=== PATIENT | female | born 1965 | race Caucasian/White ===

== ENCOUNTER → 2017-01-05 | Outpatient (CLI) | payer BC, SELFPAY ==
--- NOTE | 2017-01-06 17:56 | MRI ---
EXAM DESCRIPTION: Noncontrast MRI of the left shoulder CLINICAL HISTORY: Shoulder pain COMPARISON: None TECHNIQUE: Multiplanar, multi sequence MRI images of the left shoulder were obtained without intra-articular contrast. FINDINGS: The rotator cuff is intact. Rotator cuff musculature demonstrates normal muscle bulk and signal characteristics. Long head of the biceps is well situated within the intertubercular groove. Biceps labral anchor is intact. Labrum is intact. No significant degenerative changes of the acromioclavicular joint. No fluid seen within the subdeltoid/subacromial bursa. Type 2 acromion is noted. Glenohumeral joint cartilage is intact. No large joint effusion or loose body. Marrow signal is otherwise unremarkable without fracture or subluxation. IMPRESSION: Unremarkable MRI of the left shoulder Electronically signed by: Matthias Pan MD 01/06/2017 5:55 PM CDT
== END | disposition home or self-care (01) ==
LOC: MRI 09:13
PROVIDERS: ATTEND Family Medicine
DX: M25.512 Pain in left shoulder (principal)

== ENCOUNTER → 2017-03-06 | Outpatient (CLI) | payer BC | LOC: GMAL 16:55 | PROVIDERS: ATTEND Family Medicine | DX: Z79.899 Other long term (current) drug therapy (principal) ==

== ENCOUNTER → 2019-05-20 | Outpatient (CLI) | payer BC | LOC: GMAL 14:55 | PROVIDERS: ATTEND Family Medicine | DX: Z51.81 Encounter for therapeutic drug level monitoring (principal); Z79.899 Other long term (current) drug therapy ==

== ENCOUNTER → 2020-07-14 | Outpatient (CLI) | payer BC | LOC: GMAL 14:40 | PROVIDERS: ATTEND Family Medicine | DX: D61.3 Idiopathic aplastic anemia (principal); Z79.899 Other long term (current) drug therapy; E03.9 Hypothyroidism, unspecified; E55.9 Vitamin D deficiency, unspecified; F33.1 Major depressive disorder, recurrent, moderate; F41.1 Generalized anxiety disorder; E78.01 Familial hypercholesterolemia; D58.2 Other hemoglobinopathies; E78.00 Pure hypercholesterolemia, unspecified; R42 Dizziness and giddiness ==